=== PATIENT | female | born 1985 | race Caucasian/White ===

== ENCOUNTER 2019-02-04 13:50 | Emergency (ER) | payer OTHER ==
[2016-05-03 09:46] VITALS: Wt 73.5 kg
[~2019-02-04 13:50] MED LIST: CEPH-13 PO; FAMO20TA28 PO; HYDR-318 PO; HYDR-385 PO; IBUP-1671 PO; METO-734 PO; OMEP-218 PO; OXYB5TAB80 PO; OXYC-869 PO; PHEN200T32 PO; ZOLP-350 PO
[2019-02-04] MEDS ORDERED: NS(*) 0.9% 1000 ML BAG 1,000 ML IV ONE (14:03)
[2019-02-04] MEDS ORDERED: ONDANSETRON 4 MG ODT TABDP SL ONE ×2 (14:05→14:06)
[2019-02-04] MEDS ORDERED: LORazepam 2 MG/ML VIAL IVP ONE (14:20)
[2019-02-04] MEDS ORDERED: fentaNYL CITR 100 MCG/2 ML AMP IVP ONE (16:10)
[2019-02-04 16:39] LABS: PLATELET COUNT, AUTOMATED 255 K/uL (150-450)
[2019-02-04 17:34] VITALS: BP 115/61
[2019-02-04] MEDS ORDERED: SERT25TA87 PO (17:38)
[2019-02-04] MEDS ORDERED: ALPR-429 PO (17:38)
--- NOTE | 2019-02-11 17:13 | ER Report ---
History and Physical Time Seen By MD: 14:00 Hx. of Stated Complaint: patient reports depression and suicidal thoughts. Has been having trouble with ex and custody with children HPI/ROS CHIEF COMPLAINT: Depression, suicidal ideation HISTORY OF PRESENT ILLNESS: Patient is a 33-year-old female here with complaints of depression, suicidal thoughts. Patient has had long-standing depression however recently her ex- has been causing stressful situations with concern to the custody of her children. Patient reportedly has had prior attempts at self-harm including once again, once with overdose with pills, once with thoughts of driving into a pinon. Patient reports having thoughts of harming herself today prompting evaluation. Patient came in for voluntary evaluation. REVIEW OF SYSTEMS: Constitutional: No fever, no chills. Eyes: No discharge. ENT: No sore throat. Cardiovascular: No chest pain, no palpitations. Respiratory: No cough, no shortness of breath. Gastrointestinal: No abdominal pain, no vomiting. Genitourinary: No hematuria. Musculoskeletal: No back pain. Skin: No rashes. Neurological: No headache. Psych: Depressed-appearing, tearful, anxious Allergies: Coded Allergies: promethazine (Verified Allergy, Intermediate, muscle spasms, 05/04/16) Home Meds Reported Medications Multivits,Ca,Minerals/Iron/Fa (THERA-M TABLET) 1 Each Tablet, 1 EACH PO DAILY 02/08/19 Famotidine (PEPCID) 20 Mg Tablet, 20 MG PO BID, #10 TAB 02/08/19 Venlafaxine Hcl (VENLAFAXINE HCL) 100 Mg Tablet, 100 MG PO QAM, 0 Refills 02/08/19 Venlafaxine Hcl (VENLAFAXINE HCL) 50 Mg Tablet, 50 MG PO QAM, 0 Refills 02/08/19 Trazodone Hcl (TRAZODONE HCL) 100 Mg Tablet, 100 MG PO QHS, TAB 02/08/19 Discontinued Reported Medications Sertraline Hcl (ZOLOFT) 25 Mg Tablet, 1 TAB PO QDAY, TAB 02/04/19 Alprazolam (XANAX) 0.5 Mg Tablet, 1 TAB PO TID, TAB 02/04/19 Ibuprofen (MOTRIN IB) 200 Mg Tablet, 600 TAB PO TID PRN for PAIN, #50 04/14/16 Zolpidem Tartrate (AMBIEN) 10 Mg Tablet, 1 TAB PO QHS, TAB 04/14/16 Oxycodone Hcl/Acetaminophen (PERCOCET 7.5-325 MG TABLET) 1 Each Tablet, 1 EACH PO Q4-6, TAB 05/08/16 Metoclopramide Hcl (REGLAN) 10 Mg Tablet, 10 MG PO Q6H PRN for NAUSEA/VOMITING 05/04/16 Phenazopyridine Hcl (PHENAZOPYRIDINE HCL) 200 Mg Tablet, 200 MG PO TID, TAB 04/24/16 Cephalexin (KEFLEX) 500 Mg Capsule, 500 MG PO BID, #50 CAP 04/24/16 Famotidine (PEPCID) 20 Mg Tablet, 20 MG PO BID, #20 TAB 04/14/16 Oxybutynin Chloride (OXYBUTYNIN CHLORIDE ER) 5 Mg Tab.er.24, 5 MG PO QDAY PRN for BLADDER SPASMS, #20 TAB.SA 04/14/16 Hx Smoking: No Smoking Status: Never Smoker Hx Substance Use Disorder: No Hx Alcohol Use: Yes Physical Exam General Appearance: The patient is alert, has no immediate need for airway protection and no signs of toxicity. Depressed-appearing, tearful Eyes: Pupils equal and round no pallor or injection. ENT, Mouth: Mucous membranes are moist. Respiratory: There are no retractions, lungs are clear to auscultation. Cardiovascular: Regular rate and rhythm. [ ] Gastrointestinal: Abdomen is soft and non tender, no masses, bowel sounds normal. Neurological: No focal neurological deficits Skin: Warm and dry, no rashes. Musculoskeletal: Neck is supple non tender. Extremities are nontender, nonswollen and have full range of motion. DIFFERENTIAL DIAGNOSIS: After history and physical exam differential diagnosis was considered for depression, suicidal ideation, substance abuse, anxiety Medical Decision Making Data Points Laboratory Hematology Test 02/04/19 13:58 02/04/19 16:19 Urine Color Yellow Urine Clarity Clear Urine pH 6.0 pH (4.8-9.5) Urine Specific [place] 1.023 Urine Protein Negative mg/dL (NEGATIVE) Urine Glucose (UA) Negative mg/dL (NEGATIVE) Urine Ketones Negative mg/dL (NEGATIVE) Urine Blood Negative (NEGATIVE) Urine Nitrite Negative (NEGATIVE) Urine Bilirubin Negative (NEGATIVE) Urine Urobilinogen Negative mg/dL (0.2-1.9) Urine Leukocyte Esterase Negative (NEGATIVE) Urine RBC <1 /HPF (0-2/HPF) Urine WBC 2 /HPF (0-5/HPF) Urine Squamous Epithelial Cells Few /LPF (</=FEW) Urine Bacteria Negative /HPF (NONE-FEW) Urine Mucus Few /HPF (NONE-FEW) Urine HCG, Qualitative Negative (NEGATIVE) Urine Opiates Screen Negative Urine Barbiturates Screen Negative Ur Tricyclic Antidepressants Screen Negative Urine Phencyclidine Screen Negative Urine Amphetamines Screen Negative Urine Benzodiazepines Screen Positive Urine Cocaine Screen Negative Urine Cannabinoids Screen Negative Red Blood Count 4.57 M/uL (4.17-5.56) Mean Corpuscular Volume 85.8 fL (80.0-96.0) Mean Corpuscular Hemoglobin 29.5 pg (26.0-33.0) Mean Corpuscular Hemoglobin Concent 34.5 g/dL (32.0-36.0) Red Cell Distribution Width 13.0 % (11.5-14.5) Mean Platelet Volume 7.8 fL (7.2-11.1) Neutrophils (%) (Auto) 44.5 % (39.4-72.5) Lymphocytes (%) (Auto) 37.6 % (17.6-49.6) Monocytes (%) (Auto) 5.8 % (4.1-12.4) Eosinophils (%) (Auto) 10.6 % (0.4-6.7) Basophils (%) (Auto) 1.5 % (0.3-1.4) Nucleated RBC Relative Count (auto) 0.0 /100WBC Neutrophils # (Auto) 2.6 K/uL (2.0-7.4) Lymphocytes # (Auto) 2.2 K/uL (1.3-3.6) Monocytes # (Auto) 0.3 K/uL (0.3-1.0) Eosinophils # (Auto) 0.6 K/uL (0.0-0.5) Basophils # (Auto) 0.1 K/uL (0.0-0.1) Nucleated RBC Absolute Count (auto) 0.00 K/uL Sodium Level 142 mmol/L (137-145) Potassium Level 3.2 mmol/L (3.5-5.0) Chloride Level 111 mmol/L (98-107) Carbon Dioxide Level 22 mmol/L (22-31) Blood Urea Nitrogen 7 mg/dl (7-18) Creatinine 0.90 mg/dl (0.52-1.04) Glomerular Filtration Rate Calc > 60.0 Random Glucose 92 mg/dl (75-110) Calcium Level 9.1 mg/dl (8.4-10.2) Magnesium Level 1.9 mg/dl (1.7-2.2) Total Bilirubin 0.4 mg/dl (0.2-1.3) Aspartate Amino Transf (AST/SGOT) 14 U/L (0-35) Alanine Aminotransferase (ALT/SGPT) 21 U/L (0-56) Alkaline Phosphatase 79 U/L (0-126) Total Protein 7.0 g/dl (6.3-8.2) Albumin 4.1 g/dl (3.5-5.0) Thyroid Stimulating Hormone (TSH) 2.32 uIU/ml (0.46-4.68) Salicylates Level < 10 mg/L Salicylate Last Dose Date unknown Acetaminophen Level < 10 ug/ml Serum Alcohol < 10 mg/dl Chemistry Test 02/04/19 13:58 02/04/19 16:19 Urine Color Yellow Urine Clarity Clear Urine pH 6.0 pH (4.8-9.5) Urine Specific [place] 1.023 Urine Protein Negative mg/dL (NEGATIVE) Urine Glucose (UA) Negative mg/dL (NEGATIVE) Urine Ketones Negative mg/dL (NEGATIVE) Urine Blood Negative (NEGATIVE) Urine Nitrite Negative (NEGATIVE) Urine Bilirubin Negative (NEGATIVE) Urine Urobilinogen Negative mg/dL (0.2-1.9) Urine Leukocyte Esterase Negative (NEGATIVE) Urine RBC <1 /HPF (0-2/HPF) Urine WBC 2 /HPF (0-5/HPF) Urine Squamous Epithelial Cells Few /LPF (</=FEW) Urine Bacteria Negative /HPF (NONE-FEW) Urine Mucus Few /HPF (NONE-FEW) Urine HCG, Qualitative Negative (NEGATIVE) Urine Opiates Screen Negative Urine Barbiturates Screen Negative Ur Tricyclic Antidepressants Screen Negative Urine Phencyclidine Screen Negative Urine Amphetamines Screen Negative Urine Benzodiazepines Screen Positive Urine Cocaine Screen Negative Urine Cannabinoids Screen Negative White Blood Count 5.9 k/uL (4.5-11.0) Red Blood Count 4.57 M/uL (4.17-5.56) Hemoglobin 13.5 g/dL (12.0-16.0) Hematocrit 39.2 % (34.0-47.0) Mean Corpuscular Volume 85.8 fL (80.0-96.0) Mean Corpuscular Hemoglobin 29.5 pg (26.0-33.0) Mean Corpuscular Hemoglobin Concent 34.5 g/dL (32.0-36.0) Red Cell Distribution Width 13.0 % (11.5-14.5) Platelet Count 255 K/uL (150-450) Mean Platelet Volume 7.8 fL (7.2-11.1) Neutrophils (%) (Auto) 44.5 % (39.4-72.5) Lymphocytes (%) (Auto) 37.6 % (17.6-49.6) Monocytes (%) (Auto) 5.8 % (4.1-12.4) Eosinophils (%) (Auto) 10.6 % (0.4-6.7) Basophils (%) (Auto) 1.5 % (0.3-1.4) Nucleated RBC Relative Count (auto) 0.0 /100WBC Neutrophils # (Auto) 2.6 K/uL (2.0-7.4) Lymphocytes # (Auto) 2.2 K/uL (1.3-3.6) Monocytes # (Auto) 0.3 K/uL (0.3-1.0) Eosinophils # (Auto) 0.6 K/uL (0.0-0.5) Basophils # (Auto) 0.1 K/uL (0.0-0.1) Nucleated RBC Absolute Count (auto) 0.00 K/uL Glomerular Filtration Rate Calc > 60.0 Calcium Level 9.1 mg/dl (8.4-10.2) Magnesium Level 1.9 mg/dl (1.7-2.2) Total Bilirubin 0.4 mg/dl (0.2-1.3) Aspartate Amino Transf (AST/SGOT) 14 U/L (0-35) Alanine Aminotransferase (ALT/SGPT) 21 U/L (0-56) Alkaline Phosphatase 79 U/L (0-126) Total Protein 7.0 g/dl (6.3-8.2) Albumin 4.1 g/dl (3.5-5.0) Thyroid Stimulating Hormone (TSH) 2.32 uIU/ml (0.46-4.68) Salicylates Level < 10 mg/L Salicylate Last Dose Date unknown Acetaminophen Level < 10 ug/ml Serum Alcohol < 10 mg/dl Toxicology Test 02/04/19 13:58 02/04/19 16:19 Urine Opiates Screen Negative Urine Barbiturates Screen Negative Ur Tricyclic Antidepressants Screen Negative Urine Phencyclidine Screen Negative Urine Amphetamines Screen Negative Urine Benzodiazepines Screen Positive Urine Cocaine Screen Negative Urine Cannabinoids Screen Negative Salicylates Level < 10 mg/L Salicylate Last Dose Date unknown Acetaminophen Level < 10 ug/ml Serum Alcohol < 10 mg/dl Urinalysis Test 02/04/19 13:58 Urine Color Yellow Urine Clarity Clear Urine pH 6.0 pH (4.8-9.5) Urine Specific [place] 1.023 Urine Protein Negative mg/dL (NEGATIVE) Urine Glucose (UA) Negative mg/dL (NEGATIVE) Urine Ketones Negative mg/dL (NEGATIVE) Urine Blood Negative (NEGATIVE) Urine Nitrite Negative (NEGATIVE) Urine Bilirubin Negative (NEGATIVE) Urine Urobilinogen Negative mg/dL (0.2-1.9) Urine Leukocyte Esterase Negative (NEGATIVE) Urine RBC <1 /HPF (0-2/HPF) Urine WBC 2 /HPF (0-5/HPF) Urine Squamous Epithelial Cells Few /LPF (</=FEW) Urine Bacteria Negative /HPF (NONE-FEW) Urine Mucus Few /HPF (NONE-FEW) Urine HCG, Qualitative Negative (NEGATIVE) ED Course/Re-evaluation ED Course Patient is a 33-year-old female here with complaints of depression, suicidal ideations, anxiety with recent significant life stressors. Patient does periodically take a benzodiazepine for anxiety. Denies drug or alcohol use. Tylenol aspirin negative. 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 Patient was admitted to behavioral services in stable condition. Decision to Disposition Date: Feb 04, 2019 Decision to Disposition Time: 16:00 Depart Departure Impression: Primary Impression: Suicidal ideations Condition: Condition Unchanged Disposition: XFER TO [facility] Departure Forms: Medications Reconciliation, Patient Portal Information, ER Transition Record NATHEN DIXON DO Feb 11, 2019 17:13
== END 2019-02-04 17:38 ==
LOC: ER 14:34
DX: R45.851 Suicidal ideations (principal); F41.9 Anxiety disorder, unspecified
CPT/HCPCS: 80305; 80320; 80329; 81001; 81025; 83735; 84443; 85025; 96361; 96374; 99284; J2060; J7030; S0119; 82040; 82247; 82310; 82374; 82435; 82565; 82947; 84075; 84132; 84155; 84295; 84450; 84460; 84520

== ENCOUNTER 2019-02-04 17:16 | Inpatient (IN) | payer OTHER ==
[2016-05-03 09:46] VITALS: Ht 157.5 cm; Wt 73.5 kg
[~2019-02-04] VITALS: Ht 157.5 cm; Wt 73.5 kg
[2019-02-04] MEDS ORDERED: SERT25TA87 PO (17:38)
[2019-02-04] MEDS ORDERED: ALPR-429 PO (17:38)
[2019-02-04] MEDS ORDERED: MAG HYD/AL HYD/SIMETH 30ML UDC PO PRN (17:50)
[2019-02-04] MEDS ORDERED: LORazepam 1 MG TAB PO PRN (20:15)
[2019-02-05] MEDS: ACETAMINOPHEN 325 MG TAB PO PRN ×2 (00:47→14:43)
[2019-02-05 04:46] VITALS: BP 97/72
[2019-02-05] MEDS: MULTIVITAMINS PO SCH (08:36)
[2019-02-05] MEDS ORDERED: VENLAFAXINE XR 37.5 MG CAPCR PO ONE (12:38)
[2019-02-05] MEDS ORDERED: traZODone HCL 50 MG TAB PO PRN (12:45)
[2019-02-05] MEDS: FAMOTIDINE 20 MG TAB PO SCH ×2 (12:56→21:06)
[2019-02-05] MEDS: LOPERAMIDE HCL 2 MG CAP PO PRN (19:26)
[2019-02-05] MEDS ORDERED: traZODone HCL 50 MG TAB PO SCH (21:00)
[2019-02-05 21:33] VITALS: BP 127/89
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
[2019-02-06] MEDS: ACETAMINOPHEN 325 MG TAB PO PRN (02:49)
[2019-02-06 05:39] VITALS: BP 116/89
[2019-02-06] MEDS: LOPERAMIDE HCL 2 MG CAP PO PRN (08:17)
[2019-02-06] MEDS: MULTIVITAMINS PO SCH (08:17)
[2019-02-06] MEDS: FAMOTIDINE 20 MG TAB PO SCH ×2 (08:17→20:09)
[2019-02-06] MEDS ORDERED: VENLAFAXINE XR 75 MG CAPCR PO ONE (09:00)
--- NOTE | 2019-02-06 14:57 | BHS Progress Note ---
[facility] - Subjective Progress Notes Subjective Pt seen in conference room with team. Pt at first says she wants to go home, bc she is no longer suicidal and bc she could not sleep last night. But she is still depressed, tearful, was tearful much of yesterday. She took the scheduled trazodone 50 mg last night but never did request a repeat-- says she lay in bed mostly awake all night. We encouraged her to stay so we can work with her more on getting her medications adjusted so that she is sleeping well, and to get the effexor titrated up to a robust antidepressant dose. Furthermore, she needs therapy-- her dependency traits are significantly impacting her functioning and wellbing. She agreed to stay until Sunday and we will work hard with her on coping skills, speaking up for herself, mindfulness, DBT into skills. We will arrange outpatient therapy in [place] for after discharge. Her family will participate in team meeting tomorrow. So far pt tolerating effexor well-- will increase dose to 75 today, hopefully titrate up to 150 mg by Sunday. Will increase trazodone standing dose to 100 mg tonight, with an additional 50 mg available prn after one hour-- she knows to ask for this if she needs it. Suicidal Ideation: Resolving Homicidal Ideation: None [facility] - Objective Physical Exam Vital Signs Vital Signs 02/06/19 05:39 Temp 99.0 Pulse 117 Resp 15 B/P (MAP) 116/89 (98) Pulse Ox 96 O2 Delivery Room Air Muscle Strength and Tone: WNL Gait and Station: Steady [facility] Medications Reviewed: Side Effects, Benefits of Medication, Risks Allergies Reviewed: Yes Mental Status Exam General Appearance: Casual, Good Eye Contact, Cooperative, Polite, Good Interaction, Tearful Speech: Clear, Delayed Mood: Dysthmic/Depressed Affect: Sad, Tearful (very tearful), Anxious Thought Process: Organized, Logical, Goal Directed Thought Content: Suicidal Ideation; No Homicidal Ideation, No Delusions, No Auditory Halllucinations, No Visual Hallucinations, No Thought Broadcasting, No Ideas of Reference, No Obsessions, No Compulsions, No Other Sensorium: Clear Cognition: Alert & Oriented-Person, Alert & Oriented-Place, Alert & Oriented- Time, Bsckf-Evzbkjhj-Walrltjdn Memory: Immediate, Recent, Remote Intelligence: Average Insight Judgment: Fair [facility] Assessment and Plan Zqzz-fh-[id number] Encounter Date: Feb 06, 2019 Kecv-[id number] Encounter Time: 09:00 [facility] Plan: Admit to Unit, Necessary Precautions, Individual/Group Therapy, Admin/Titrate Meds, Educate Patient Tobacco Medications: Not Appropriate Condition Multpiple Antipsychotics Used: No Problems: (1) Recurrent major depression-severe (2) Adjustment disorder with mixed anxiety and depressed mood (3) Dependent personality disorder Optional Permanent Comment: traits Last Edited By: Von Turcios on Feb 06, 2019 14:57 VON TURCIOS MD Feb 06, 2019 14:57
[2019-02-06] MEDS: traZODone HCL 50 MG TAB PO SCH (20:10)
[2019-02-06] MEDS ORDERED: traZODone HCL 50 MG TAB PO PRN (21:00)
[2019-02-07 05:31] VITALS: BP 110/81
[2019-02-07] MEDS: MULTIVITAMINS PO SCH (08:28)
[2019-02-07] MEDS: FAMOTIDINE 20 MG TAB PO SCH ×2 (08:28→20:49)
[2019-02-07] MEDS ORDERED: VENLAFAXINE XR 75 MG CAPCR PO ONE (09:00)
[2019-02-07] MEDS ORDERED: VENLAFAXINE PO SCH (09:00)
[2019-02-07] MEDS ORDERED: VENLAFAXINE XR 37.5 MG CAPCR PO ONE (09:00)
[2019-02-07 13:27] VITALS: BP 118/94
--- NOTE | 2019-02-07 15:49 | BHS Progress Note ---
[facility] - Subjective Progress Notes Subjective Pt seen in treatment team with her mother on speaker phone. Pt at first reporting 8/10 anxiety, with upset stomach, headache, feeling that her physical symptoms are related to anxiety, was tearful. We talked about what she is learning here regarding coping skills, mindfulness, haque mind, negative thinking. 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 By the end of our conversation she was much calmer, rating anxiety at a 5/10. She is tolerating meds well, she did sleep better last night with trazodone. She will be titrated up to effexor xr 150mg by tomorrow, with discharge planned for tomorrow-- her sister is picking her up. She will [facility] up at [facility]. Mother is very supportive of plan. Suicidal Ideation: None Homicidal Ideation: None [facility] - Objective Physical Exam Vital Signs Vital Signs 02/07/19 02/07/19 05:31 13:27 Temp 100.2 Pulse 97 Resp 15 B/P (MAP) 118/94 (102) Pulse Ox 97 O2 Delivery Room Air Muscle Strength and Tone: WNL Gait and Station: Steady [facility] Medications Reviewed: Side Effects, Benefits of Medication, Risks Allergies Reviewed: Yes Mental Status Exam General Appearance: Casual, Well Groomed, Good Eye Contact, Cooperative, Polite, Good Interaction, Tearful Speech: Clear, Delayed Mood: Dysthmic/Depressed Affect: Sad, Tearful (very tearful), Anxious Thought Process: Organized, Logical, Goal Directed Thought Content: Suicidal Ideation; No Homicidal Ideation, No Delusions, No Auditory Halllucinations, No Visual Hallucinations, No Thought Broadcasting, No Ideas of Reference, No Obsessions, No Compulsions, No Other Sensorium: Clear Cognition: Alert & Oriented-Person, Alert & Oriented-Place, Alert & Oriented- Time, Nlqmn-Zfbayyug-Ykqdhsdlr Memory: Immediate, Recent, Remote Intelligence: Average Insight Judgment: Fair [facility] Assessment and Plan Yrqx-[id number] Encounter Date: Feb 07, 2019 Esqv-[id number] Encounter Time: 10:30 [facility] Plan: Admit to Unit, Necessary Precautions, Individual/Group Therapy, Admin/Titrate Meds, Educate Patient Tobacco Medications: Not Appropriate Condition Multpiple Antipsychotics Used: No Problems: (1) Recurrent major depression-severe (2) Adjustment disorder with mixed anxiety and depressed mood (3) Dependent personality disorder Optional Permanent Comment: traits Last Edited By: Von Turcios on Feb 06, 2019 14:57 VON TURCIOS MD Feb 07, 2019 15:49
[2019-02-07] MEDS: ACETAMINOPHEN 325 MG TAB PO PRN (20:48)
[2019-02-07] MEDS: traZODone HCL 50 MG TAB PO SCH (20:49)
[2019-02-08] MEDS: FAMOTIDINE 20 MG TAB PO SCH (08:40)
[2019-02-08] MEDS: MULTIVITAMINS PO SCH (08:40)
[2019-02-08] MEDS ORDERED: VENLAFAXINE XR 75 MG CAPCR PO ONE (09:00)
[2019-02-08] MEDS ORDERED: TRAZ100T31 PO (10:27)
[2019-02-08] MEDS ORDERED: VENL50TA23 PO (10:29)
[2019-02-08] MEDS ORDERED: VENL100T22 PO (10:29)
[2019-02-08] MEDS ORDERED: FAMO20TA28 PO (10:30)
[2019-02-08] MEDS ORDERED: MULT-859 PO (10:31)
--- NOTE | 2019-02-08 10:45 | BHS Progress Note ---
BHS - Subjective Progress Notes Subjective "I am a little bit anxious about going home but feel better." Last thoughts of hurting self last Sunday Discuss in length with team members discharge plan, review medications Suicidal Ideation: None Homicidal Ideation: None BHS - Objective Physical Exam Vital Signs Vital Signs Date Time Temp Pulse Resp B/P (MAP) Pulse Ox O2 Delivery O2 Flow Rate FiO2 02/07/19 13:27 100.2 97 118/94 (102) 97 Room Air 02/07/19 05:31 15 Deferred Medications (Trade) Dose Ordered Sig/Yaima Route PRN Reason Start Time Stop Time Status Last Admin Dose Admin Acetaminophen (Tylenol(*)325 Mg Tab (Or Equiv)) 650 mg Q4H PRN PO HEADACHE 02/04/19 17:50 03/06/19 17:49 02/07/19 20:48 Famotidine (Pepcid(*) 20 Mg Tab (Or Equiv)) 20 mg BID PO 02/05/19 12:39 03/07/19 12:38 02/08/19 08:40 Loperamide HCl (Imodium 2 Mg Cap (Or Equiv)) 2 mg PRN PRN PO DIARRHEA 02/05/19 18:05 03/07/19 18:04 02/06/19 08:17 Lorazepam (Ativan(*) 1 Mg Tab (Or Equiv)) 1 mg Q6H PRN PO ANXIETY/INSOMNIA 02/04/19 20:15 02/18/19 20:14 02/04/19 20:41 Multivitamins (Thera-M Enhanced Tab (Or Equiv)) 1 each QDAY PO 02/05/19 09:00 03/07/19 08:59 02/08/19 08:40 Trazodone HCl (Desyrel 50 Mg Tab (Or Equiv)) 100 mg QHS PO 02/06/19 21:00 03/07/19 12:44 02/07/19 20:49 Venlafaxine HCl (Effexor-Xr 37.5 Mg Capcr (Or Equiv)) 37.5 mg ONCE ONCE PO 02/05/19 12:38 02/05/19 12:39 DC 02/05/19 12:56 Venlafaxine HCl (Effexor-Xr 75 Mg Capcr (Or Equiv)) 150 mg ONCE ONCE PO 4/27/19 09:00 02/08/19 09:01 DC 02/08/19 08:40 Venlafaxine HCl (Effexor-Xr 75 Mg Capcr (Or Equiv)/Effexor-Xr 37.5 Mg Capcr (Or Equiv)) 112.5 mg QDAY PO 02/07/19 09:00 02/08/19 07:38 DC 02/07/19 08:28 Muscle Strength and Tone: WNL Gait and Station: Steady S Medications Reviewed: Side Effects, Benefits of Medication, Risks Allergies Reviewed: Yes Mental Status Exam General Appearance: Casual, Well Groomed, Good Eye Contact, Cooperative, Polite, Good Interaction, Tearful Speech: Clear, Delayed Mood: Dysthmic/Depressed Affect: Sad, Tearful (very tearful), Anxious Thought Process: Organized, Logical, Goal Directed Thought Content: Suicidal Ideation; No Homicidal Ideation, No Delusions, No Auditory Halllucinations, No Visual Hallucinations, No Thought Broadcasting, No Ideas of Reference, No Obsessions, No Compulsions, No Other Sensorium: Clear Cognition: Alert & Oriented-Person, Alert & Oriented-Place, Alert & Oriented- Time, Dctyj-Upcbtwmq-Hgrtmtucm Memory: Immediate, Recent, Remote Intelligence: Average Insight Judgment: Fair Microbiology Current Medications Medications (Trade) Dose Ordered Sig/Yaima Route PRN Reason Start Time Stop Time Status Last Admin Dose Admin Acetaminophen (Tylenol(*)325 Mg Tab (Or Equiv)) 650 mg Q4H PRN PO HEADACHE 02/04/19 17:50 03/06/19 17:49 02/07/19 20:48 Al Hydrox/Mg Hydrox/Simethicone (Maalox(*) 30 ml Udcup (Or Equiv)) 30 ml Q4H PRN PO DYSPEPSIA 02/04/19 17:50 03/06/19 17:49 Multivitamins (Thera-M Enhanced Tab (Or Equiv)) 1 each QDAY PO 02/05/19 09:00 03/07/19 08:59 02/08/19 08:40 Lorazepam (Ativan(*) 1 Mg Tab (Or Equiv)) 1 mg Q6H PRN PO ANXIETY/INSOMNIA 02/04/19 20:15 02/18/19 20:14 02/04/19 20:41 Trazodone HCl (Desyrel 50 Mg Tab (Or Equiv)) 50 mg QHS PO 02/05/19 21:00 02/06/19 10:05 DC 02/05/19 21:06 Venlafaxine HCl (Effexor-Xr 37.5 Mg Capcr (Or Equiv)) 37.5 mg ONCE ONCE PO 02/05/19 12:38 02/05/19 12:39 DC 02/05/19 12:56 Famotidine (Pepcid(*) 20 Mg Tab (Or Equiv)) 20 mg BID PO 02/05/19 12:39 03/07/19 12:38 02/08/19 08:40 Venlafaxine HCl (Effexor-Xr 75 Mg Capcr (Or Equiv)) 75 mg ONCE ONCE PO 02/06/19 09:00 02/06/19 09:01 DC 02/06/19 08:17 Trazodone HCl (Desyrel 50 Mg Tab (Or Equiv)) 50 mg QHS PRN PO PRN 02/05/19 12:45 02/06/19 10:05 DC Loperamide HCl (Imodium 2 Mg Cap (Or Equiv)) 2 mg PRN PRN PO DIARRHEA 02/05/19 18:05 03/07/19 18:04 02/06/19 08:17 Trazodone HCl (Desyrel 50 Mg Tab (Or Equiv)) 100 mg QHS PO 02/06/19 21:00 03/07/19 12:44 02/07/19 20:49 Trazodone HCl (Desyrel 50 Mg Tab (Or Equiv)) 50 mg QHS PRN PO INSOMNIA 02/06/19 21:00 03/07/19 20:59 Venlafaxine HCl (Effexor-Xr 75 Mg Capcr (Or Equiv)) 75 mg ONCE ONCE PO 02/07/19 09:00 02/07/19 09:00 DC Venlafaxine HCl (Effexor-Xr 37.5 Mg Capcr (Or Equiv)) 37.5 mg ONCE ONCE PO 02/07/19 09:00 02/07/19 09:00 DC Venlafaxine HCl (Effexor-Xr 75 Mg Capcr (Or Equiv)) 150 mg ONCE ONCE PO 02/08/19 09:00 02/08/19 09:01 DC 02/08/19 08:40 Venlafaxine HCl (Effexor-Xr 75 Mg Capcr (Or Equiv)/Effexor-Xr 37.5 Mg Capcr (Or Equiv)) 112.5 mg QDAY PO 02/07/19 09:00 02/08/19 07:38 DC 02/07/19 08:28 [facility] Assessment and Plan Ghpx-[id number]-[id number] Encounter Date: Feb 08, 2019 Llza-fv-Bgsv Encounter Time: 10:41 [facility] Plan: Admit to Unit, Necessary Precautions, Individual/Group Therapy, Admin/Titrate Meds, Educate Patient Tobacco Medications: Not Appropriate Condition Multpiple Antipsychotics Used: No Problems: (1) Recurrent major depression-severe (2) Adjustment disorder with mixed anxiety and depressed mood Condition Discharge to home., See discharge dictation for full report Follow up with [facility] for individual psychotherapy and medication management. GLENN CISSE NP Feb 08, 2019 10:44
--- NOTE | 2019-02-08 13:27 | DISCHARGE SUMMARY ---
DATE OF ADMISSION: February 04, 2019 DATE OF DISCHARGE: February 08, 2019 ATTENDING PROVIDER Chikis Valdes, Psychiatric Mental Health Nurse Practitioner. FINAL DIAGNOSIS PER DSM-V 1. Adjustment disorder with mixed anxiety and depressed mood. 2. Recurrent major depression, moderate. REASON FOR ADMISSION/BRIEF HISTORY This patient is a 33-year-old female that presented to the emergency department on a voluntary basis reporting increased depression and suicidal ideation. She reports a lengthy period of depression which has spanned over 7 years since her divorce 7 years ago. 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 The patient reported at time of admission she had been isolating in her room after work not wanting to be with family and friends, decreased appetite, significant insomnia. She has never been an inpatient on a psychiatric unit, although did report she had "accidental" overdose in October when she was very stressed, agitated and trying to get some sleep. She took Ambien and several Xanax and muscle relaxants. Friends had brought her to the emergency room at that time to be monitored in which she was then released. This past weekend, prior to admission, she reports increase in suicidal ideation thinking of going to a pinon, putting her car in neutral, running over her making it look like an accident or thoughts of haring herself by firearm, getting a gun from her father's house. She again came to the ER voluntarily and was admitted to Behavioral Health Unit for further evaluation and treatment. The patient was stabilized on venlafaxine 150 mg p.o. every morning as well as trazodone 100 mg at bedtime. She again, has never been previously inpatient psychiatric hospitalized, although in the past had been on Lexapro, Zoloft, and Ambien. She had some outpatient previous counselling at the time of her divorce, currently, not engaged in medication management or psychotherapy. The patient reported improved symptoms and absence of suicidal or homicidal ideation at the time of discharge interview. PHYSICAL EXAM Please see emergency room note for physical exam. Vital signs at the time of admission: Temperature 99.3, pulse 117, respiratory rate 15, blood pressure 97/72, pulse oximetry 95% on room air. Vital signs at time of discharge: Temperature of 100.2, pulse of 97, respiratory rate 15, blood pressure 119/94, pulse oximetry 97% on room air. LABORATORY DATA CBC within normal limits with few abnormalities. Chemistry panel within normal limits, potassium slightly low at 3.2, chloride slightly elevated at 111. Urine screen within normal limits. Toxicology includes salicylate, acetaminophen, serum alcohol levels less than 10. Urine screen negative for opiates, barbiturates, tricyclics, phencyclidine, amphetamines, cocaine and cannabinoids, positive for benzodiazepines. MENTAL STATUS EXAMINATION GENERAL APPEARANCE, BEHAVIOR AND ATTITUDE: The patient is calm, cooperative, with no periods of tearfulness at time of discharge interview. No psychomotor agitation or retardation. No bizarre mannerisms or ticks. SPEECH: Within normal limits, regular rate, rhythm, volume, and tone. MOOD: Mostly euthymic. AFFECT: Minimally constricted and mood congruent. THOUGHT PROCESSES: Logical and goal-directed, no loose associations or flight of ideas. THOUGHT CONTENT: Free of auditory or visual hallucinations, ideas of reference, thought broadcastings, delusions, obsessions, compulsions. The patient denying suicidal or homicidal ideation. SENSORIUM: Clear. COGNITION: Alert and oriented to person, place, time, and situation. MEMORY: Intact for immediate, recent and remote recall. INTELLIGENCE: Average, based on interview. INSIGHT AND JUDGMENT: Considered improved. The patient is agreeable with ongoing outpatient individual psychotherapy and medication management. CONSULTATIONS None. TREATMENT The patient participated individual and group therapy. She was initiated on medications including venlafaxine which was tapered up to 150 mg p.o. q a.m. and trazodone 100 mg p.o. q p.m. Other discharge medications include: Pepcid 20 mg p.o. daily, multivitamin 1 p.o. daily. She is to take medications only as prescribed. CONDITION OF PATIENT ON DISCHARGE The patient is stable. She is considered a minimal risk to herself or others. DISPOSITION The patient is discharged to home. She is to follow up with outpatient individual therapy and medication management through [facility] with an appointment established for Sunday, February 10, 2019. She is to avoid alcohol and all illicit substances. She is given the Crisis Line number and encouraged use for worsening symptoms, suicidal or homicidal ideation. The patient is denying any thoughts of harming herself or others and reports good support system from her parents as well as her work family. She is adamantly denying suicidal or homicidal ideation and has a safety plan in place. The patient is competent and agreeable with the above discharge plan. JEREMIAH
== END 2019-02-08 11:05 | disposition home or self-care (01) | DRG 885 ==
LOC: BHS 17:16
PROVIDERS: ADMIT Psychiatry & Neurology Psychiatry; ATTEND Psychiatry & Neurology Psychiatry
DX: F33.2 Major depressive disorder, recurrent severe without psychotic features (principal); R45.851 Suicidal ideations; F43.23 Adjustment disorder with mixed anxiety and depressed mood; F60.7 Dependent personality disorder; K21.9 Gastro-esophageal reflux disease without esophagitis; Z62.810 Personal history of physical and sexual abuse in childhood; Z91.419 Personal history of unspecified adult abuse; Z91.411 Personal history of adult psychological abuse; Z63.79 Other stressful life events affecting family and household